=== PATIENT | female | born 1955 | race Caucasian/White ===

== ENCOUNTER 2021-03-21 07:15 | Inpatient (IN) ==
[2021-03-21] MEDS ORDERED: SODIUM CHLORIDE 0.9% 1,000 ML IV STA (07:57)
[2021-03-21 08:00] LABS: Basophils % 0.1 % (0.0-0.8); Hematocrit 35.9 VOL% (35.7-47.0); Hemoglobin 12.3 GM/DL (12.0-16.0); Immature Granulocytes % 0.8 %; Immature Granulocytes Absolute 0.08 #; Lymphocytes # 0.4 10*3/uL (1.4-4.0); Lymphocytes % 3.6 % (21.3-54.2); Mean Corpuscular HGB Conc 34.3 GM/DL (32-36); Mean Corpuscular Volume 91.8 FL (87-102); Mean Platelet Volume 9.4 FL (9.6-12.0); Neutrophils % 88.5 % (38.7-73.9); Platelet Count 200 T/CUMM (130-400); Red Blood Count 3.91 MC/CUMM (3.8-5.5); Red Cell Distribution Width 12.9 % (9.3-17.3); White Blood Count 10.4 T/CUMM (4-12)
[2021-03-21 08:10] LABS: PT Patient Result 11.5 SECS (10.5-12.0)
[2021-03-21 08:20] LABS: Band Neutrophils 10 % (0-10); Lymphocytes 1 % (20-55); Microcytosis Slight; Segmented Neutrophils 82 % (50-85); Total Cells Counted 100
[2021-03-21 08:21] LABS: Ovalocytes Slight; Platelet Estimate Normal
[2021-03-21 08:34] LABS: Albumin 3.2 G/DL (3.4-5.0); Bilirubin,Total 1.4 MG/DL (0.20-1.00); Calcium 8.6 MG/DL (8.5-10.1); Osmolality,Calculated 251.6 MOS/KG (273-304); Potassium 3.5 MMOL/L (3.5-5.1); Total Protein 6.1 G/DL (6.4-8.2)
[2021-03-21 09:27] LABS: Bacteria,Urine Moderate /HPF (Few); Bilirubin,Urine Negative (Negative); Blood, Urine Small mg/dL (Negative); Glucose,Urine (UA) 150 mg/dL (Negative); Ketones,Urine Negative (Negative); Mucus,Urine Occasional /LPF (Occasional); Nitrite,Urine Positive (Negative); Protein,Urine Negative; RBC,Urine 1 /HPF (0-4); Urine Appearance Slightly Hazy (Clear); Urine Color Yellow (Yellow); Urine Specific Gravity 1.004 (1.001-1.035); Urine Urobilinogen < 2.0 EU/DL (<2.0)
[2021-03-21] MEDS ORDERED: cefTRIAXone 2,000 MG in SODIUM CHLORIDE 0.9% 100 ML IV ONE (09:32)
[2021-03-21] MEDS ORDERED: DEXTROSE 10% 25 GM/250 ML BAG IV PRN (10:40)
[2021-03-21] MEDS ORDERED: GLUCAGON 1 MG VIAL IM PRN (10:40)
[2021-03-21] MEDS ORDERED: ONDANSETRON 4 MG/2 ML VIAL IV PRN (10:40)
[2021-03-21] MEDS ORDERED: DICLOFENAC 1.3% PATCH 5/PACK TRANSDERM PRN (11:37)
[2021-03-21] MEDS: SODIUM CHLORIDE 0.9% 1,000 ML IV SCH ×3 (14:22→22:18)
[2021-03-21] MEDS: ACETAMINOPHEN 325 MG TABLET PO PRN (14:26)
[2021-03-21] MEDS: ENOXAPARIN 40 MG/0.4 ML SYRINGE SUBCUT SCH (20:27)
[2021-03-22] MEDS: ACETAMINOPHEN 325 MG TABLET PO PRN ×2 (02:09→10:40)
[2021-03-22] MEDS: SODIUM CHLORIDE 0.9% 1,000 ML IV SCH ×4 (03:12→22:53)
[2021-03-22 05:48] LABS: Basophils % 0.2 % (0.0-0.8); Eosinophils % 0.1 % (0.00-10.9); Hematocrit 31.7 VOL% (35.7-47.0); Hemoglobin 10.5 GM/DL (12.0-16.0); Immature Granulocytes % 0.6 %; Immature Granulocytes Absolute 0.05 #; Lymphocytes % 11.7 % (21.3-54.2); Mean Corpuscular HGB Conc 33.1 GM/DL (32-36); Mean Corpuscular Volume 91.9 FL (87-102); Mean Platelet Volume 9.2 FL (9.6-12.0); Monocytes % 10.4 % (1.7-12.7); Platelet Count 186 T/CUMM (130-400); Red Blood Count 3.45 MC/CUMM (3.8-5.5); Red Cell Distribution Width 13.5 % (9.3-17.3); White Blood Count 8.2 T/CUMM (4-12)
[2021-03-22 06:09] LABS: Band Neutrophils 2 % (0-10); Lymphocytes 10 % (20-55); Platelet Estimate Normal; Segmented Neutrophils 83 % (50-85); Total Cells Counted 100
[2021-03-22 06:17] LABS: Calcium 8.1 MG/DL (8.5-10.1); Osmolality,Calculated 277.4 MOS/KG (273-304); Potassium 3.2 MMOL/L (3.5-5.1)
[2021-03-22] MEDS ORDERED: cefTRIAXone 1,000 MG in SODIUM CHLORIDE 0.9% 100 ML IV SCH (09:00)
[2021-03-22] MEDS: FERROUS SULFATE 325 MG TABLET PO SCH (10:33)
[2021-03-22] MEDS: CALCIUM (CARBONATE) 500 MG TABLET PO SCH (10:33)
[2021-03-22] MEDS: CETIRIZINE 10 MG TABLET PO SCH (10:34)
[2021-03-22] MEDS: PREGABALIN 75 MG CAPSULE PO SCH (11:20)
[2021-03-22] MEDS: DULoxetine 20 MG CAPSULE PO SCH (11:20)
[2021-03-22] MEDS: cefTRIAXone 2,000 MG in SODIUM CHLORIDE 0.9% 100 ML IV SCH (14:34)
[2021-03-22] MEDS: ENOXAPARIN 40 MG/0.4 ML SYRINGE SUBCUT SCH (20:41)
[2021-03-23] MEDS: SODIUM CHLORIDE 0.9% 1,000 ML IV SCH (04:47)
[2021-03-23 05:19] LABS: Basophils % 0.4 % (0.0-0.8); Eosinophils # 0.1 10*3/uL (0.0-0.87); Eosinophils % 2.1 % (0.00-10.9); Hematocrit 30.8 VOL% (35.7-47.0); Hemoglobin 9.9 GM/DL (12.0-16.0); Immature Granulocytes % 0.4 %; Immature Granulocytes Absolute 0.02 #; Lymphocytes # 1.5 10*3/uL (1.4-4.0); Lymphocytes % 28.9 % (21.3-54.2); Mean Corpuscular HGB Conc 32.1 GM/DL (32-36); Mean Corpuscular Volume 93.1 FL (87-102); Mean Platelet Volume 9.6 FL (9.6-12.0); Neutrophils % 56.2 % (38.7-73.9); Platelet Count 180 T/CUMM (130-400); Red Blood Count 3.31 MC/CUMM (3.8-5.5); Red Cell Distribution Width 13.7 % (9.3-17.3); White Blood Count 5.3 T/CUMM (4-12)
[2021-03-23 05:31] LABS: Calcium 8.3 MG/DL (8.5-10.1); Osmolality,Calculated 276.4 MOS/KG (273-304); Potassium 3.5 MMOL/L (3.5-5.1)
[2021-03-23 05:43] LABS: Band Neutrophils 1 % (0-10); Eosinophils 2 % (0-10); Lymphocytes 32 % (20-55); Nucleated Red Blood Cells 1 (0-5); Segmented Neutrophils 53 % (50-85); Target Cells Slight; Total Cells Counted 100
[2021-03-23 05:44] LABS: Microcytosis Slight; Ovalocytes Slight; Platelet Estimate Adequate
[2021-03-23] MEDS: CALCIUM (CARBONATE) 500 MG TABLET PO SCH (09:57)
[2021-03-23] MEDS: FERROUS SULFATE 325 MG TABLET PO SCH (09:57)
[2021-03-23] MEDS: CETIRIZINE 10 MG TABLET PO SCH (09:57)
[2021-03-23] MEDS: DULoxetine 20 MG CAPSULE PO SCH (09:57)
[2021-03-23] MEDS: PREGABALIN 75 MG CAPSULE PO SCH (09:57)
[2021-03-23 12:22] VITALS: BP 124/60
[2021-03-23] MEDS: cefTRIAXone 2,000 MG in SODIUM CHLORIDE 0.9% 100 ML IV SCH (12:55)
== END 2021-03-23 15:30 | disposition home or self-care (01) | DRG 683 ==
LOC: N.ED 07:15 → N.TELEN 10:40 → SUATTDRO 10:40 → N.TELEN 12:04
PROVIDERS: ADMIT Internal Medicine; ATTEND Internal Medicine